=== PATIENT | female | born 1985 | race American Indian/Alaskan Native ===

== ENCOUNTER 2024-08-31 20:17 | Inpatient (IN) | payer MEDICAID ==
[~2024-08-31] VITALS: Ht 165.1 cm; Wt 51.3 kg
[2024-08-31] MEDS ORDERED: CEFTRIAXONE SODIUM 2 GM in SODIUM CHLORIDE 0.9% 100 ML IV ONE (21:00)
[2024-08-31] MEDS ORDERED: LACTATED RINGER'S 1,000 ML IV ONE (21:00)
[2024-08-31] MEDS ORDERED: methylPREDNISolone SOD SUCC 125 MG/2 ML VIAL IV ONE (21:15)
[2024-08-31] MEDS ORDERED: ACETAMINOPHEN 500 MG TAB PO ONE (21:15)
[2024-08-31] MEDS ORDERED: ALBUTEROL/IPRATROPIUM 3 ML NEB INH ONE (21:15)
[2024-08-31 21:16] LABS: HEMOGLOBIN 13.6 g/dL (12.0-18.0); MCH 28.1 (27-36); MCHC 33.2 g/dl (30-36); MCV 84.7 fl (81-99); PLATELET COUNT 173 K/uL (140-440); RBC 4.84 M/ul (4.3-5.7); RDW 13.7 (10.5-15.0)
[2024-08-31 21:38] LABS: BANDS, MANUAL DIFF 3; LYMPHOCYTES, MANUAL DIFF 17; MONOCYTES, MANUAL DIFF 4; NEUTROPHILS, MANUAL DIFF 76
[2024-08-31 22:17] LABS: BILIRUBIN, URINE NEGATIVE (negative); BLOOD/HGB, URINE MODERATE (Negative); KETONE, URINE NEGATIVE (Negative); LEUK ESTERASE, URINE NEGATIVE (negative); NITRITE, URINE POSITIVE (negative); PH, URINE 6.5 (5-7)
[2024-08-31 22:23] LABS: COLLECTION TYPE, URINE CATH; RED BLOOD CELLS, URINE 0-1 /hpf (0-5)
[2024-08-31 22:24] LABS: BACTERIA, URINE 4+ /hpf (negative); CASTS, URINE NONE SEEN \\lpf; CRYSTALS, URINE NONE SEEN (0-1+); REFLEX CULTURE, URINE Yes (No)
[2024-08-31 22:25] LABS: EPITHELIAL CELLS, URINE SQUAMOUS 1+ /lpf (0-1+)
[2024-08-31 22:27] LABS: INFLUENZA B NAA NEGATIVE (NEGATIVE); RESPIRATORY SYNCYTIAL VIR NAA NEGATIVE (NEGATIVE)
[2024-08-31 22:36] LABS: AMPHETAMINES, URINE POSITIVE (NEGATIVE); BARBITURATES, URINE NEGATIVE (NEGATIVE); BENZODIAZEPINE, URINE NEGATIVE (NEGATIVE); BUPRENORPHINE, URINE NEGATIVE (NEGATIVE); CANNABINOID, URINE POSITIVE (NEGATIVE); COCAINE, URINE NEGATIVE (NEGATIVE); ECSTASY, URINE POSITIVE (NEGATIVE); FENTANYL, URINE POSITIVE (NEGATIVE); METHADONE, URINE NEGATIVE (NEGATIVE); OPIATES, URINE POSITIVE (NEGATIVE); OXYCODONE, URINE NEGATIVE (NEGATIVE); PHENCYCLIDINE, URINE NEGATIVE (NEGATIVE)
[2024-08-31] MEDS ORDERED: AZITHROMYCIN 500 MG in DEXTROSE 5% 250 ML IV ONE (22:45)
[2024-08-31] MEDS ORDERED: ACETAMINOPHEN 325 MG TAB PO PRN (23:00)
[2024-08-31] MEDS ORDERED: ondansetron HCL 4 MG/2 ML VIAL IV PRN (23:00)
[2024-08-31] MEDS ORDERED: metroNIDAZOLE/SODIUM CHLORIDE 500 MG/100 ML PIGGYBACK IV ONE (23:00)
[2024-08-31 23:52] LABS: PARTIAL THROMBOPLASTIN TIME 31.8 Sec (22.9-41.3)
[2024-08-31 23:53] LABS: INR 1.1 (0.80-1.30); PROTIME 13.5 Sec (11.2-14.2)
[2024-08-31 23:55] LABS: LACTIC ACID, BLOOD 0.8 mmol/L (0.4-2.0)
[2024-09-01 00:02] LABS: ALBUMIN 2.7 g/dL (3.4-5.0); ALBUMIN/GLOBULIN RATIO 0.64 (1.1-2.4); ANION GAP 11.3 (7-21); BILIRUBIN, TOTAL 0.4 mg/dL (0.2-1.0); BUN/CREATININE RATIO 12.5 (6.0-28.6); CALCIUM 8.3 mg/dL (8.5-10.1); CREATININE, SERUM 0.56 mg/dL (0.55-1.02); POTASSIUM 3.3 mmol/L (3.5-5.1); PROTEIN, TOTAL 6.9 g/dL (6.4-8.2)
--- NOTE | 2024-09-01 00:03 | NUR ---
PHONE CALL FROM SERVICE DESK MANAGER, RN ASKS ER MD ABOUT REPLACING POTASSIUM, AND ELEVATED D DIMER, NO NEW ORDERS FROM MD. SERVICE DESK MANAGER TO BRING pt TO MS FLOOR.
[2024-09-01 00:31] VITALS: BP 126/82
--- NOTE | 2024-09-01 00:44 | NUR ---
REPORT RECEIVED FROM NITA ZAMORANO, PATIENT ADMITTED TO RM 111 FROM ER. PATIENT IS DROWSY, AROUSABLE WITH LOUD SOUNDS. DRIFTING TO SLEEP MID SENTENCE. MINIMAL MEDICAL HISTORY OBTAINED FROM PATIENT SHE REFUSES TO ANSWER. TELE MONITOR IN PLACE, CPOX IN PLACE. ASSESSMENT COMPLETE, VS OBTAINED AND RECORDED.
[2024-09-01] MEDS ORDERED: ALBUTEROL SULFATE 0.083% 3 ML VIAL INH PRN ×2 (01:00→01:15)
--- NOTE | 2024-09-01 01:00 | NUR ---
pt ARRIVES TO [place] VIA STRETCHER. pt DROWSY, IRRITABLE WITH ADMISSION HISTORY QUESTIONS. 2L OYXGEN BY NC IN PLACE. IV ANTIBIOTIC INFUSING. PRIMARY RN IN ROOM ASSESSING pt, TWO RN SKIN CHECK. INFORMATION OBTAINED FROM SIGNIFICANT OTHER. pt HOMELESS. PER SIGNIFICANT OTHER, CONCERN FOR WITHDRAWAL. "SHE SMOKES FENTANYL ALL DAY EVERY DAY".
--- NOTE | 2024-09-01 01:16 | NUR ---
TELE LEADS ADJUSTED. PATIENT SLEEPING, RESPIRATIONS EVEN AND UNLABORED. MILD SNORING NOTED. NC IN PLACE AT 2L. NO NEEDS IDENTIFIED, CALL LIGHT IN REACH.
--- NOTE | 2024-09-01 02:16 | NUR ---
PATIENT RESTING WITH EYES CLOSED, RESPIRATIONS EVEN AND UNLABORED. TELE IN PLACE, CPOX AT BEDSIDE. NC IN PLACE AT 2L. NO NEEDS IDENTIFIED, CALL LIGHT IN REACH
--- NOTE | 2024-09-01 03:13 | NUR ---
PATIENT RESTING WITH EYES CLOSED, ON RIGHT SIDE. RESPIRATIONS ARE EVEN AND UNLABORED. NO NEEDS IDENTIFIED, CALL LIGHT IN REACH. CPOX AT BEDSIDE, NC AT 2L.
--- NOTE | 2024-09-01 04:27 | NUR ---
PATIENT RESTING WITH EYES CLOSED, RESPIRATIONS EVEN AND UNLABORED. NO NEEDS IDENTIFIED, CALL LIGHT IN REACH. CPOX AT BEDSIDE, NC IN PLACE AT 2L.
[2024-09-01 05:00] VITALS: BP 112/75
[2024-09-01 05:02] VITALS: BP 112/75
--- NOTE | 2024-09-01 05:07 | NUR ---
PATIENT RESTING ON RIGHT SIDE IN BED, VS OBTAINED AND RECORDED. OUTPUT RECORDED. PATIENT AROUSABLE WITH VOICE, BUT REMAINS DROWSY. PATIENT TAKEN NC OFF HERSELF, ON ROOM AIR AT THIS TIME. CALL LIGHT IN REACH, BED ALARM ON.
[2024-09-01 05:43] LABS: BASOPHILS 0.1 % (0-2); HEMATOCRIT 38.5 % (35.0-50.0); HEMOGLOBIN 12.8 g/dL (12.0-18.0); LYMPHOCYTES 4.6 % (24-44); MCH 28.2 (27-36); MCHC 33.3 g/dl (30-36); MCV 84.7 fl (81-99); MONOCYTES 2.7 % (0-12); NEUTROPHILS 92.6 % (39-80); PLATELET COUNT 211 K/uL (140-440); RBC 4.55 M/ul (4.3-5.7); RDW 13.7 (10.5-15.0)
--- NOTE | 2024-09-01 05:44 | NUR ---
PATIENT REFUSED FOR TRACK WATCHMAN TO DRAW HER BLOOD VIA STRAIGHT STICK. BLOOD DRAW COMPLETE VIA DRAW OFF OF IV SITE. 5ML BLOOD WASTED PRIOR. CLAVE CHANGED ON IV SITE. IV SITES FLUSHED WITH 10ML NS. PATIENT DENIES NEEDS, CALL LIGHT IN REACH
[2024-09-01 06:00] LABS: ALBUMIN 2.6 g/dL (3.4-5.0); ALBUMIN/GLOBULIN RATIO 0.57 (1.1-2.4); ANION GAP 8.5 (7-21); BILIRUBIN, TOTAL 0.3 mg/dL (0.2-1.0); BUN/CREATININE RATIO 14.28 (6.0-28.6); CALCIUM 8.5 mg/dL (8.5-10.1); CREATININE, SERUM 0.56 mg/dL (0.55-1.02); POTASSIUM 3.5 mmol/L (3.5-5.1); PROTEIN, TOTAL 7.2 g/dL (6.4-8.2)
[2024-09-01] MEDS ORDERED: metroNIDAZOLE/SODIUM CHLORIDE 500 MG/100 ML PIGGYBACK IV SCH ×2 (06:00→14:00)
--- NOTE | 2024-09-01 06:23 | NUR ---
AM ANTIBIOTICS HUNG. PT ASLEEP THOUGH EASILY ROUSED. SUPPORT PERSON AT BEDSIDE. CALL LIGHT IN REACH, BED ALARM ACTIVE
--- NOTE | 2024-09-01 07:10 | NUR ---
VERBAL REPORT RECIEVED BY NITA BOLAÑOS. PATIENT RESTING WITH EYES CLOSED. RESP EVEN AND UNLABORED, CPOX IN PLACE SPO2 92% ON RA.
--- NOTE | 2024-09-01 07:22 | NUR ---
PT AWAKE REQUESTS WATER, STATES, "I AM WITHDRAWING I NEED SOMETHING." ICE WATER AT BEDSIDE. PT STATED "IF I AM NOT GOING TO GET ANYTHING I AM JUST GOING TO LEAVE." DR. SHELTON NOTFIED. DISCUSSED PLAN OF CARE WITH PATIENT. PUDDING PROVIDED PER PT REQUEST. PT CALM AT THIS TIME. CALL LIGHT IN REACH.
--- NOTE | 2024-09-01 07:43 | NUR ---
PT REFUSES RESP TREATMENT FROM LANE, RT.
--- NOTE | 2024-09-01 07:49 | NUR ---
HOURLY ROUNDING. PATIENT ASKS FOR FOOD AND SOMETHING TO DRINK. A PUDDING WAS GIVEN (CHOCOLATE AND VANILLA) NO FURTHER REQUEST, BOARD HAS BEEN UPDATED
[2024-09-01] MEDS ORDERED: ALBUTEROL/IPRATROPIUM 3 ML NEB INH SCH (08:00)
[2024-09-01] MEDS ORDERED: MORPHINE SULFATE 4 MG/ML VIAL IV PRN (08:30)
[2024-09-01] MEDS ORDERED: LORazepam 1 MG TAB PO PRN (08:30)
[2024-09-01] MEDS ORDERED: SODIUM CHLORIDE 0.9% 1,000 ML IV SCH (08:30)
[2024-09-01] MEDS ORDERED: ondansetron HCL 4 MG/2 ML VIAL IV PRN (08:30)
[2024-09-01] MEDS ORDERED: ACETAMINOPHEN 325 MG TAB PO PRN (08:30)
--- NOTE | 2024-09-01 09:32 | EKG ---
[facility] [address] [place] [id number] Signed Normal sinus rhythm Nonspecific T wave abnormality Abnormal ECG No previous ECGs available Confirmed by Evangelina Shelton MD () on 09/01/2024 9:32:18 AM Electronically Signed By: EVANGELINA SHELTON MD 09/01/24 0932 PATIENT NAME: NENITA IGLESIAS RADHA Electrocardiogram DATE OF : 83 PHYSICIAN: EVANGELINA SHELTON MD REPORT #: [id number] REPORT IS CONFIDENTIAL AND NOT TO BE RELEASED WITHOUT AUTHORIZATION
--- NOTE | 2024-09-01 09:35 | NUR ---
PT WITNESSED BY STEF DENNEY, IN BATHROOM USING VAPE PEN. DISCUSSED WITH PT THAT SHE CANNOT USE HER VAPE PEN HERE, PT VERBALIZES UNDERSTANDING. PT GIVE PEN TO S/O WHO STATES HE IS TAKING IT OUT OF THE HOSPITAL AND STORING IT IN HIS CAR. DISCUSSED WITH S/O THAT THE VAPE PEN CANNONT BE USE HERE, S/O VERBALIZES UNDERSTANDING. PT LEAVES MED-SURG VIA WHEELCHAIR TO IMAGING FOR CT.
[2024-09-01] MEDS ORDERED: guaiFENesin 600 MG TABCR PO PRN (09:45)
--- NOTE | 2024-09-01 09:49 | NUR ---
PT ARRIVES BACK FROM CT VIA WHEELCHAIR, TRANSFERS SELF TO RECLINER, SITS UP IN RECLINER EATS BREAKFAST. CALL LIGHT IN REACH, NO REQUESTS AT THIS TIME.
[2024-09-01 09:50] VITALS: BP 116/82
[2024-09-01] MEDS ORDERED: BENZONATATE 100 MG CAP PO PRN (10:00)
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
--- NOTE | 2024-09-01 10:46 | NUR ---
S/O RETURNS WITH SAH BAG, INVENTORY OF SAH BAG: BLACK SHOES, SWEAT PANTS, BRA AND SHIRT.
[2024-09-01] MEDS ORDERED: PHARMACY RENAL DOSE ADJUSTMENT 1 DOSE MISC PO SCH (12:00)
--- NOTE | 2024-09-01 12:38 | NUR ---
called davian to come down to see patient to be signed up for insurance.
[2024-09-01 13:23] VITALS: BP 110/72
--- NOTE | 2024-09-01 13:43 | NUR ---
PT RESTS WITH EYES CLOSED IN CHAIR. RESPS EVEN UNLABORED, SP02 92%. CALL LIGHT IN REACH.
--- NOTE | 2024-09-01 14:20 | NUR ---
HOURLY ROUNDING. NOTHING TO REPORT ABOUT PAITENT SHE SLEEPT THROUGH LUNCH. I WAS CONCERNED ABOUT RESTROOM NEEDS, ASK PATIENT IF I COULD ASSIST HER TO THE RESTROOM. PATIENT APPEARS TO BE REALLY TIRED. SPOUSE IS AT BED SIDE. CALL LIGHT WAS PLACED NEAR PATIENT AND WHERE HER PARTNER CAN SEE IT TO CALL FOR ASSISTANCE. BEDDING HAS BEEN CHANGED FOR PATIENT, A PERWICK HAS BEEN REMOVED. PATIENT WAS SOILED BEFORE SLEEPING. WIPE DOWN HAS BEEN COMPLETED AND A NEW GOWN WAS GIVEN.
--- NOTE | 2024-09-01 14:35 | NUR ---
PT NOT AVAILABLE FOR VISIT. PROVIDED PRAYER.
--- NOTE | 2024-09-01 15:00 | NUR ---
CALLED TO PT ROOM BY STEF DENNEY, PT HAD A AGENCY SERVICE COORDINATOR AND PIPE IN THE BATHROOM. UPON ENTERING PT HAD PIPE ON LAP UNDER GOWN WHILE SITTING ON TOILET. PIPE WAS HOT TO THE TOUCH, TOOK(WITH GLOVES ON) AND PLACED IN LOCK BOX UNTIL SECURITY HALIMA ARRIVED TO ROOM AND TOOK. PT COMPLAINING OF 9\10 PAIN, ADMINISTERED MORPHINE. STARTED ORDERED AB.
--- NOTE | 2024-09-01 15:22 | NUR ---
[place] [facility] [place] [place] SELF PAY INPT 09/01/24 @ 0823 REG UPDATED NO AUTH REQUIRED IS SELF PAY. ELIGIBILTY TO MEET WITH PATIENT DISCHARGE TO HOME WHEN STABLE 09/03/24
--- NOTE | 2024-09-01 16:48 | NUR ---
PT RESTING WITH EYES CLOSED. RESPS EVEN AND UNLABORED, CPOX IN PLACE, SPO2 92%.
--- NOTE | 2024-09-01 17:55 | NUR ---
PT WAKES UP, PONCE AND MOANS, STATES, "I FEEL LIKE CRAP." WHEN OFFERED ATIVAN PT DECLINES, PT RECEPTIVE TO MORPHINE HOWEVER EDUCATION PROVIDED ON FREQUENCY, MORPHINE WAS NOT YET AVAILABLE. PT DECLINES OFFER OF TYLENOL. PT STATES, "I JUST NEED TO LEAVE, I WANT TO LEAVE." "MY RIDE IS OUTSIDE." PT WILLING TO TAKE ANTIBIOTICS OUTPT, WILLING TO WAIT TO HAVE AN RX. DR. ROCHA NOTIFIED VIA OF PT SITUATION. PT OFFERED SUBOXONE, DECLINES THIS. DR. ROCHA COMES TO PT ROOM AND SPEAKS WITH PT. PT STATES, "I JUST NEED FENTANYL." PT WANTS TO GO HOME. RX ON CHART.
--- NOTE | 2024-09-01 18:07 | NUR ---
RETURNED TO PT ROOM, PT NOW RESTING WITH EYES CLOSED RESP EVEN AND UNLABORED, SPO2 97%.
[2024-09-01 18:36] VITALS: BP 139/95
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
[2024-09-01] MEDS ORDERED: AZITHROMYCIN 500 MG in DEXTROSE 5% 250 ML IV SCH (21:00)
[2024-09-01] MEDS ORDERED: CEFTRIAXONE SODIUM 2 GM in SODIUM CHLORIDE 0.9% 100 ML IV SCH (21:00)
[2024-09-02] MEDS ORDERED: ENOXAPARIN SODIUM 40 MG/0.4 ML SYR SUB-Q SCH (09:00)
== END 2024-09-01 20:05 | disposition left against medical advice (07) | DRG 871 ==
LOC: ED 20:17 → MS 20:18
PROVIDERS: Internal Medicine; ADMIT Family Medicine; ATTEND Family Medicine
DX: A41.9 Sepsis, unspecified organism (principal); J18.9 Pneumonia, unspecified organism; N39.0 Urinary tract infection, site not specified; Z88.1 Allergy status to other antibiotic agents; Z79.899 Other long term (current) drug therapy; F15.10 Other stimulant abuse, uncomplicated; F12.10 Cannabis abuse, uncomplicated; F11.10 Opioid abuse, uncomplicated
CPT/HCPCS: 36415; 51701; 71045; 71260; 80053; 80307; 81001; 83605; 84484; 84703; 85025; 85379; 85610; 85730; 87040; 87502; 93005; 93010; 94640; 94762; 99285-25; A9270; A9270-GY; J0456; J0696; J2270; J2919; J7030; J7060; J7121; Q9967; U0002

== ENCOUNTER 2025-01-04 22:39 | Emergency (ER) | payer MEDICAID ==
[~2025-01-04] VITALS: Ht 165.1 cm; Wt 54.8 kg
[2025-01-04] MEDS ORDERED: KETOROLAC TROMETHAMINE 15 MG/ML VIAL IV ONE (23:15)
[2025-01-04 23:35] LABS: BASOPHILS 0.6 % (0.1-1.2); EOSINOPHILS 3.1 % (0.7-5.8); LYMPHOCYTES 23.4 % (19.3-51.7); MCH 28.6 PG (25.6-32.2); MCHC 32.6 g/dL (32.2-35.5); MCV 87.8 fL (79.4-94.8); MONOCYTES 9.7 % (4.7-12.5); NEUTROPHILS 63.0 % (34.0-71.1); RBC 4.58 M/uL (3.93-5.22)
[2025-01-04 23:57] LABS: ALT (SGPT) 106.0 U/L (14-59); AST (SGOT) 76.0 U/L (15-37); GLOMERULAR FILTRATION RATE,EST 115.0 mL/min (>60); PROTEIN, TOTAL 7.9 g/dL (6.4-8.2); UREA NITROGEN 9.0 mg/dL (7-18)
[2025-01-05] MEDS ORDERED: TRAMADOL HCL50 MG PO (00:44)
[2025-01-05] MEDS ORDERED: AMOX TR-K CLV1 EAC1 PO (00:44)
[2025-01-05] MEDS ORDERED: TRAMADOL HCL 50 MG HOME.PACK PO ONE (01:00)
[2025-01-05 01:28] VITALS: BP 137/99
== END 2025-01-05 01:28 | disposition home or self-care (01) ==
LOC: ED 22:39
PROVIDERS: Family Medicine
DX: K04.7 Periapical abscess without sinus (principal); Z88.1 Allergy status to other antibiotic agents
CPT/HCPCS: 36415; 70486; 80053; 80307; 83735; 85025; 96374; 99284-25; A9270; J1885

== ENCOUNTER 2025-04-18 09:36 | Emergency (ER) | payer MEDICAID ==
[~2025-04-18] VITALS: Ht 165.1 cm; Wt 54.8 kg
[~2025-04-18 09:36] MED LIST: AMOX TR-K CLV1 EAC1 PO; TRAMADOL HCL50 MG PO
[2025-04-18] MEDS ORDERED: SULFAMETHOXAZO1 EAC1 PO (10:05)
[2025-04-18] MEDS ORDERED: ZINC OXIDE/GELATIN/GELATIN 1 BANDAGE BANDAGE TOP ONE (10:30)
--- OUTSIDE RECORDS SUMMARY | 2025-04-18 10:41 | XMS ---
PreManage Notification: NENITA IGLESIAS Security Bowl Topper Events No recent Security Events currently on file CRITERIA MET - [facility] - 2 Visits in 30 Days CARE PROVIDERS There are no care providers on record at this time. Hira has no Care Guidelines for this patient. Bettina VISIT COUNT (12 MO.) 3 HALLE Fernandez ([facility]) TOTAL 5 NOTE: Visits indicate total known visits. ED/C VISIT TRACKING (12 MO.) 04/18/2025 09:36 HALLE [facility]as [place] TYPE: Emergency COMPLAINT: - WOUND CHECK 03/28/2025 04:41 Juan Pablo [facility] ([facility]) TYPE: Emergency DIAGNOSES: - Cellulitis of right lower limb - Leg Wound - Wound 03/02/2025 22:06 Juan Pablo [facility] ([facility]) TYPE: Emergency DIAGNOSES: - Acute cystitis without hematuria - Streptococcal pharyngitis - flank pain 01/04/2025 22:40 [facility] [place] TYPE: Emergency COMPLAINT: - ABCESS DIAGNOSES: - Allergy status to other antibiotic agents - Localized swelling, mass and lump, head - Periapical abscess without sinus 08/31/2024 20:17 HAL[facility] [place] TYPE: Emergency COMPLAINT: - POSS KIDNEY INFECTION INPATIENT VISIT TRACKING (12 MO.) 09/01/2024 08:23 HALLE [facility] TYPE: Medical Surgical COMPLAINT: - COMMUNITY ACQUIRED PNEUMONIA DIAGNOSES: - Allergy status to other antibiotic agents - Allergy status to other antibiotic agents - Cannabis abuse, uncomplicated - Cannabis abuse, uncomplicated - Opioid abuse, uncomplicated - Opioid abuse, uncomplicated - Other [place] (current[facility] drug therapy - 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
== END 2025-04-18 10:50 | disposition home or self-care (01) ==
LOC: ED 09:36
DX: S81.801A Unspecified open wound, right lower leg, initial encounter (principal); X58.XXXA Exposure to other specified factors, initial encounter; Z88.1 Allergy status to other antibiotic agents
CPT/HCPCS: 99283